=== PATIENT | female | born 1945 | race Caucasian/White ===

== ENCOUNTER 2017-04-11 11:27 | Emergency (ER) | payer MEDICARE, MEDICAID ==
--- NOTE | 2017-04-11 11:31 | ED Physician Chart ---
Chief Complaint/HPI - Patient Information Date Seen:: 04/11/17 Time Seen:: 11:31 Chief Complaint:: headache History of Present Illness:: 72-year-old female, otherwise healthy, complains of acute, worsening, constant, severe, nonradiating, generalized headache 3 days. Associated generalized body aches as well. Denies fevers, dysuria, abdominal pain, nausea, vomiting, numbness, tingling, injury, syncope, lightheadedness, dizziness. Historian:: Patient Review:: Nurse's Note Reviewed Review of Systems - Review of Systems Other: Complete system review otherwise unremarkable except as noted in history of present illness. Past Medical History - Past Medical History Past Medical History: No significant medical hx Family History: None Social History: Non Smoker, No Alcohol, No Drug Use, Other Surgical History: None Psychiatricy History: None Medication: None Family Medical History - Family Member Mother History Unknown: Yes Ethnicity: Living Status: Physical Exam - Physical Examination Other:: INITIAL VITAL SIGNS: Reviewed by me GENERAL: Alert and interactive. No acute distress HEAD: Head is normocephalic and atraumatic EYES: EOMI. PERRL. No scleral icterus. No conjunctival injection ENT: Moist mucous membranes. NECK: Supple. No masses. Full range of motion RESPIRATORY: No tachypnea. Clear breath sounds bilaterally. No wheezing, rales, or rhonchi CV: Regular rate and rhythm. No murmurs, rubs, or gallops ABDOMEN: Soft, non-distended, non-tender. No guarding. No rebound. No masses. EXTREMITIES: No deformity. No cyanosis. No edema. SKIN: Warm and dry. No obvious rashes. NEUROLOGIC: Alert and oriented. Face is symmetric. Speech is normal. Moves all extremities equally. Motor and sensory distally intact. Labs/Radiology/EKG Results - Lab Results Results: Lab Results 04/11/17 04/11/17 04/11/17 Range/Units 11:50 11:50 11:50 WBC 8.1 (4.8-10.8) Th/cmm RBC 4.52 (3.80-5.20) Mil/cmm Hgb 13.0 (11.7-16.1) gm/dL Hct 38.8 (35.0-45.0) % MCV 85.8 (81-100) fl MCH 28.8 (27.0-31.0) pg MCHC Differential 33.6 (28.0-36.0) pg RDW 13.1 (11.5-20.0) % Plt Count 164 (150-400) Th/cmm MPV 10.2 fl Neutrophils % 64.9 (40.0-80.0) % Lymphocytes % 22.9 (20.0-50.0) % Monocytes % 11.7 H (2.0-10.0) % Eosinophils % 0.2 (0.0-5.0) % Basophils % 0.3 (0.0-2.0) % PT 11.0 (9.5-11.5) SECONDS INR 1.06 (0.5-1.4) PTT (Actin FS) 31.4 (26.0-38.0) SECONDS Sodium 133 L (136-145) mEq/L Potassium 3.8 (3.5-5.1) mEq/L Chloride 107 (98-107) mEq/L Carbon Dioxide 20.8 L (21.0-31.0) mEq/L Anion Gap 9.0 (7.0-16.0) BUN 21 (7-25) mg/dL Creatinine 1.0 (0.6-1.2) mg/dL Est GFR ( Amer) TNP Est GFR (Non-Af Amer) TNP BUN/Creatinine Ratio 21.0 Glucose 109 H (70-105) mg/dL Whole Bld Lactic Acid (0.60-1.99) mmol/L Calcium 9.9 (8.6-10.3) mg/dL Total Bilirubin 0.6 (0.3-1.0) mg/dL AST 52 H (13-39) U/L ALT 67 H (7-52) U/L Alkaline Phosphatase 83 (34-104) U/L Total Protein 7.8 (6.0-8.3) gm/dL Albumin 3.9 (3.7-5.3) gm/dL Globulin 3.9 gm/dL Albumin/Globulin Ratio 1.0 (1.0-1.8) Urine Source Urine Color Urine Clarity (CLEAR) Urine pH Ur Specific [place] (1.005-1.030) Urine Protein (NEGATIVE) mg/dL Urine Glucose (UA) (NEGATIVE) mg/dL Urine Ketones (NEGATIVE) mg/dL Urine Blood (NEGATIVE) Urine Nitrate (NEGATIVE) Urine Bilirubin (NEGATIVE) Urine Urobilinogen (0.2 - 1.0) E.U./dL Ur Leukocyte Esterase (NEGATIVE) Urine RBC (0-5) /hpf Urine WBC (0-5) /hpf Ur Epithelial Cells (FEW) /lpf Urine Bacteria (NONE SEEN) /hpf 04/11/17 04/11/17 Range/Units 11:50 13:13 WBC (4.8-10.8) Th/cmm RBC (3.80-5.20) Mil/cmm Hgb (11.7-16.1) gm/dL Hct (35.0-45.0) % MCV (81-100) fl MCH (27.0-31.0) pg MCHC Differential (28.0-36.0) pg RDW (11.5-20.0) % Plt Count (150-400) Th/cmm MPV fl Neutrophils % (40.0-80.0) % Lymphocytes % (20.0-50.0) % Monocytes % (2.0-10.0) % Eosinophils % (0.0-5.0) % Basophils % (0.0-2.0) % PT (9.5-11.5) SECONDS INR (0.5-1.4) PTT (Actin FS) (26.0-38.0) SECONDS Sodium (136-145) mEq/L Potassium (3.5-5.1) mEq/L Chloride (98-107) mEq/L Carbon Dioxide (21.0-31.0) mEq/L Anion Gap (7.0-16.0) BUN (7-25) mg/dL Creatinine (0.6-1.2) mg/dL Est GFR ( Amer) Est GFR (Non-Af Amer) BUN/Creatinine Ratio Glucose (70-105) mg/dL Whole Bld Lactic Acid 0.91 (0.60-1.99) mmol/L Calcium (8.6-10.3) mg/dL Total Bilirubin (0.3-1.0) mg/dL AST (13-39) U/L ALT (7-52) U/L Alkaline Phosphatase (34-104) U/L Total Protein (6.0-8.3) gm/dL Albumin (3.7-5.3) gm/dL Globulin gm/dL Albumin/Globulin Ratio (1.0-1.8) Urine Source CLEAN C Urine Color YELLOW Urine Clarity SL. CLOUDY (CLEAR) Urine pH 6.0 Ur Specific [place] 1.025 (1.005-1.030) Urine Protein 30 H (NEGATIVE) mg/dL Urine Glucose (UA) NEGATIVE (NEGATIVE) mg/dL Urine Ketones NEGATIVE (NEGATIVE) mg/dL Urine Blood MODERATE H (NEGATIVE) Urine Nitrate POSITIVE H (NEGATIVE) Urine Bilirubin NEGATIVE (NEGATIVE) Urine Urobilinogen 0.2 (0.2 - 1.0) E.U./dL Ur Leukocyte Esterase SMALL H (NEGATIVE) Urine RBC 5-7 (0-5) /hpf Urine WBC 10-25 H (0-5) /hpf Ur Epithelial Cells FEW (FEW) /lpf Urine Bacteria MANY (NONE SEEN) /hpf - EKG Interpretations Comments:: 12-lead EKG Interpretation by Manuel Flaherty MD: Normal Sinus Rhythm with ventricular rate of 95 beats per minute Normal axis Normal intervals No acute ST or T wave changes. No obvious STEMI ED Septic Shock - . Is Septic Shock (SBP<90, OR Lactate>4 mmol\L) present?: No Reassessment (Disposition) - Reassessment Reassessment:: Patient presents with headache and body aches. Has UTI. Gave IV normal saline , IV analgesics, IV antibiotics. Symptoms improved. Will give prescription for oral antibiotics. Recommend follow-up with primary care in 1-2 days. Return to ER precautions given. Patient says she understands and agrees with the plan. Blood pressure was noted to be elevated over 120/80. There were no signs of hypertension. Discussed the findings with the patient and recommended that the patient follow up with the primary care physician regarding the elevated blood pressure. - Diagnosis Diagnosis:: Acute Cephalalgia Acute urinary tract infection, sight unspecified, with hematuria Elevated blood pressure without the diagnosis of hypertension - Aftercare/Follow up Instructions Aftercare/Follow-Up Instructions:: Counseled pt regarding lab results/diagnosis & need follow up, Refer to Discharge Instructions Medication Prescribed:: Cephalexin - Patient Disposition Discharge/Transfer:: Home Time:: 14:04 Condition at Disposition:: Improved ED Discharge Plan - Patient Disposition Instructions: Urinary Tract Infection
[2017-04-11] MEDS ORDERED: Dexamethasone Sodium Phos 4 mg/mL Vial IVP STA (11:35)
[2017-04-11] MEDS ORDERED: Sodium Chloride 0.9% 1,000 ML IV ONE (11:35)
[2017-04-11] MEDS ORDERED: Prochlorperazine 5 mg/mL 2mL Vial IVP STA (11:44)
[2017-04-11] MEDS ORDERED: Dexamethasone Sodium Phos 10 mg/mL PF Vial ONE (11:51)
[2017-04-11] MEDS ORDERED: Prochlorperazine 5 mg/mL 2mL Vial ONE (11:54)
[2017-04-11 11:57] LABS: % BASOPHILS 0.3 % (0.0-2.0); % EOSINOPHILS 0.2 % (0.0-5.0); % LYMPHOCYTES 22.9 % (20.0-50.0); % MONOCYTES 11.7 % (2.0-10.0); % NEUTROPHILS 64.9 % (40.0-80.0); HEMATOCRIT 38.8 % (35.0-45.0); MEAN CELL VOLUME 85.8 fl (81-100); MEAN CORPUSCULAR HEMOGLOBIN 28.8 pg (27.0-31.0); MEAN CORPUSCULAR HGB CONC 33.6 pg (28.0-36.0); MEAN PLATELET VOLUME 10.2 fl; NEUTROPHILE ABSOLUTE 5.3 Th/cmm (1.8-8.0); PLATELET COUNT 164 Th/cmm (150-400); RED BLOOD COUNT 4.52 Mil/cmm (3.80-5.20); RED CELL DISTRIBUTION WIDTH 13.1 % (11.5-20.0); WHITE BLOOD COUNT 8.1 Th/cmm (4.8-10.8)
[2017-04-11 12:16] LABS: INR 1.06 (0.5-1.4)
[2017-04-11 12:24] LABS: ALKALINE PHOSPHATASE 83 U/L (34-104); BILIRUBIN,TOTAL 0.6 mg/dL (0.3-1.0); BUN - UREA NITROGEN 21 mg/dL (7-25); CALCIUM SERUM 9.9 mg/dL (8.6-10.3); CARBON DIOXIDE 20.8 mEq/L (21.0-31.0); CHLORIDE 107 mEq/L (98-107); GLUCOSE 109 mg/dL (70-105); POTASSIUM SERUM 3.8 mEq/L (3.5-5.1); SGOT 52 U/L (13-39); SGPT/ALT 67 U/L (7-52); SODIUM SERUM 133 mEq/L (136-145)
[2017-04-11 13:35] LABS: URINE BACTERIA MANY /hpf (NONE SEEN); URINE BILIRUBIN NEGATIVE (NEGATIVE); URINE BLOOD MODERATE (NEGATIVE); URINE COLOR YELLOW; URINE EPITHELIAL CELLS FEW /lpf (FEW); URINE GLUCOSE (UA) NEGATIVE (NEGATIVE); URINE KETONE NEGATIVE (NEGATIVE); URINE PROTEIN 30 mg/dL (NEGATIVE); URINE UROBILINOGEN 0.2 E.U./dL (0.2 - 1.0)
[2017-04-11] MEDS ORDERED: cefTRIAXone 1 GM in Sodium Chloride 0.9% 50 ML IV ONE (13:51)
== END 2017-04-11 14:00 | disposition home or self-care (01) ==
LOC: ER 11:27
DX: R51 Headache (principal); N39.0 Urinary tract infection, site not specified; R03.0 Elevated blood-pressure reading, without diagnosis of hypertension; R31.9 Hematuria, unspecified; Z91.041 Radiographic dye allergy status; Z88.0 Allergy status to penicillin
CPT/HCPCS: 99285; 96365; 96375; 93005; 36415; 83605; 85025; 85610; 85730; 87086; 81001; 80053; 87040 ×2; J1885; J0696; J0780; J1200; J7030

== ENCOUNTER 2018-11-18 15:35 | Emergency (ER) | payer MEDICARE, MEDICAID ==
[2018-11-18] MEDS ORDERED: Lactated Ringer 1,000 ML IV ONE (16:07)
[2018-11-18] MEDS ORDERED: Morphine Sulfate 2 mg/mL 1mL Syr ONE ×2 (17:47→22:59)
--- NOTE | 2018-11-18 18:47 | ED Physician Chart ---
ED Chief Complaint/HPI - Patient Information Date Seen:: 11/18/18 Time Seen:: 16:27 Chief Complaint:: R hip pain s/p fall History of Present Illness:: R hip pain s/p fall Allergies:: Allergies Allergy/AdvReac Type Severity Reaction Status Date / Time iodine Allergy Verified 04/11/17 11:41 Penicillins [PCN] Allergy Verified 04/11/17 11:41 Vitals:: Vital Signs - 8 hr 11/18/18 11/18/18 16:27 18:22 Temp 98.0 F 98.5 F HR 75 95 RR 19 18 BP 163/73 180/88 O2 Sat % 95 95 Historian:: Patient, Family Member Review:: Nurse's Note Reviewed ED Review of Systems - Review of Systems General/Constitutional: No fever, No chills, No weight loss, No weakness, No diaphoresis, No edema, No loss of appetite Skin: No skin lesions, No rash, No bruising Head: No headache, No light-headedness Eyes: No loss of vision, No pain, No diplopia ENT: No earache, No nasal drainage, No sore throat, No tinnitus Neck: No neck pain, No swelling, No thyromegaly, No stiffness, No mass noted Cardio Vascular: No chest pain, No palpitations, No PND, No orthopnea, No edema Pulmonary: No SOB, No cough, No sputum, No wheezing GI: No nausea, No vomiting, No diarrhea, No pain, No melena, No hematochezia, No constipation, No hematemesis G/U: No dysuria, No frequency, No hematuria Musculoskeletal: Bone or joint pain Endocrine: No polyuria, No polydipsia Psychiatric: No prior psych history, No depression, No anxiety, No suicidal ideation Hematopoietic: No bruising, No lymphadenopathy Allergic/Immuno: No urticaria, No angioedema Neurological: No syncope, No focal symptoms, No weakness, No paresthesia, No headache, No seizure, No dizziness, No confusion, No vertigo ED Past Medical History - Past Medical History Obtainable: Yes Past Medical History: No significant medical hx Family Medical History - Family Member Mother History Unknown: Yes Ethnicity: Living Status: ED Physical Exam - Physical Examination Other Gen/Cons comments:: in pain. Received Morphine 12 mg IV en route. Head: Atraumatic Eyes: Lids, conjuctiva normal, PERRL, EOMI Skin: Nl inspection, No rash, No skin lesions, No ecchymosis, Well hydrated, No lymphadenopathy ENMT: External ears, nose nl Neck: Nontender, No nuchal rigidity, No stridor Respiratory: Nl effort/Exclusion, Clear to Auscultation, No Wheeze/Rhonchi/Rales Cardio Vascular: RRR, No murmur, gallop, rubs, NL S1 S2 GI: No tenderness/rebounding/guarding, No organomegaly, No hernia, Normal BS's, Nondistended, No mass/bruits, No McBurney tenderness Other Extremities comments:: Right hip pain. NV intact. Neuro/Psych: Alert/oriented Other Neuro/Psych comments:: in pain. ED Assessment - Assessment General Assessment: case hardener called from [facility]. We need a higher level of care for transfer to an orthopedist. called and let the phone ring for [address] Hai Alfonso, orthopedist. No answer. sign out given to Dr. Georges that [facility] is looking for a place to send this patient ED Septic Shock - . Is Septic Shock (SBP<90, OR Lactate>4 mmol\L) present?: No - <6hrs of presentation: Vital Signs: Vital Signs - 8 hr 11/18/18 11/18/18 16:27 18:22 Temp 98.0 F 98.5 F HR 75 95 RR 19 18 BP 163/73 180/88 O2 Sat % 95 95 ED Reassessment (Disposition) - Reassessment Reassessment Condition:: Improved - Diagnosis Diagnosis:: Closed, right intertrochanteric fracture. RUE abrasions H/o prior plated R ulnar fracture. - Patient Disposition Discharge/Transfer:: Acute Care (other hosp) Condition at Disposition:: Stable, Improved
[2018-11-18] MEDS ORDERED: Triple Antibiotic 0.94 gm Pkt TP SCH (19:15)
[2018-11-18 19:17] LABS: EOSINOPHILE ABSOLUTE 0.1 Th/cmm (0.1-0.4); HEMATOCRIT 37.9 % (41.0-60); HEMOGLOBIN 12.6 gm/dL (12-16); LYMPHOCYTE ABSOLUTE 0.8 Th/cmm (1.5-3.0); MEAN CELL VOLUME 88.7 fl (81-100); MEAN CORPUSCULAR HEMOGLOBIN 29.5 pg (27.0-31.0); MEAN CORPUSCULAR HGB CONC 33.3 pg (28.0-36.0); MEAN PLATELET VOLUME 10.4 fl; MONOCYTE ABSOLUTE 0.5 Th/cmm (0.3-1.0); PLATELET COUNT 200 Th/cmm (150-400); RED BLOOD COUNT 4.27 Mil/cmm (3.80-5.20); RED CELL DISTRIBUTION WIDTH 12.8 % (11.5-20.0)
[2018-11-18 19:22] LABS: WHITE BLOOD COUNT 16.4 Th/cmm (4.8-10.8)
[2018-11-18 19:25] LABS: ALB/GLOB RATIO 1.5 (1.0-1.8); ALBUMIN 4.1 gm/dL (3.7-5.3); ALKALINE PHOSPHATASE 65 U/L (34-104); ANION GAP 12.8 (7.0-16.0); BILIRUBIN,TOTAL 0.4 mg/dL (0.3-1.0); BUN - UREA NITROGEN 20 mg/dL (7-25); CALCIUM SERUM 9.9 mg/dL (8.6-10.3); CHLORIDE 107 mEq/L (98-107); CREATININE - SERUM 0.8 mg/dL (0.6-1.2); GLUCOSE 126 mg/dL (70-105); MAGNESIUM 1.9 mg/dL (1.9-2.7); PHOSPHOROUS 3.8 mg/dL (2.5-5.0); POTASSIUM SERUM 3.8 mEq/L (3.5-5.1); SGOT 20 U/L (13-39); SGPT/ALT 13 U/L (7-52); SODIUM SERUM 140 mEq/L (136-145); TOTAL PROTEIN,SERUM 6.9 gm/dL (6.0-8.3)
[2018-11-18] MEDS ORDERED: Triple Antibiotic 0.94 gm Pkt TP ONE (19:41)
[2018-11-18 20:01] LABS: BAND NEUTROPHILE 0 % (0-10); BASOPHIL 0 % (0-3); EOSINOPHIL 0 % (0-5); LYMPHOCYTE 4 % (20-50); MONOCYTE 4 % (2-10); NEUTROPHILS 91 % (40-80)
[2018-11-18 21:10] LABS: INR 0.98 (0.5-1.4); PROTHROMBIN TIME (TEST) 10.2 SECONDS (9.5-11.5)
[2018-11-18] MEDS ORDERED: Morphine Sulfate 2 mg/mL 1mL Syr IVP STA ×2 (22:46)
[2018-11-19] MEDS ORDERED: Morphine Sulfate 4 mg/mL 1mL Syr ONE ×2 (00:19→03:25)
[2018-11-19] MEDS ORDERED: Morphine Sulfate 4 mg/mL 1mL Syr IVP STA (00:37)
[2018-11-19] MEDS ORDERED: Morphine Sulfate 4 mg/mL 1mL Syr IV STA (03:21)
--- NOTE | 2018-11-19 07:51 | Diagnostic Imaging Report ---
Exam: Right forearm HISTORY: Trauma Prior exams: None Findings: Portable summation of right forearm at 1659 reviewed. The study demonstrates extensive fusion of the proximal right ulna metallic plate and screws in satisfactory position and orientation. There is no evidence of fracture dislocation. No soft tissue swelling is noted. Impression: status post fusion of proximal right ulna in satisfactory position.
--- NOTE | 2018-11-19 07:52 | Diagnostic Imaging Report ---
Exam: Right hip joint. HISTORY: Status post fall. Findings: Portable examination of the right hip joint at 1701 reviewed. The study demonstrates comminuted displaced into trochanteric fracture of the right femur. Avulsion of lesser trochanter is noted. The head of right femur is well within the acetabular fossa. The visualized hemipelvis is intact. IMPRESSION: comminuted, displaced intratrochanteric fracture right femur.
--- NOTE | 2018-11-19 07:53 | Diagnostic Imaging Report ---
Exam: Pelvis. HISTORY: Trauma. Findings: Portable summation of pelvis at 1649 reviewed. The study demonstrates minimally displaced intratrochanteric fracture of the right femur. The sacroiliac joints and pubic symphysis is intact. The left hip joint is intact. IMPRESSION: Displaced, comminuted intratrochanteric fracture right femur with avulsion of lesser trochanter.
--- NOTE | 2018-11-19 09:37 | Diagnostic Imaging Report ---
CT right lower extremity without IV contrast History: Right hip pain, fracture Comparison: Right hip x-rays performed the same day Technique: Axial images of the pelvis and right hip were obtained without IV contrast. Multiplanar reconstructions were made. Total DLP 262, CTD I 12.0 Findings: There is a comminuted mildly displaced angulated fracture of the right intertrochanteric region. The fracture line extends to the proximal right femoral shaft. No evidence of dislocation. Surrounding mild soft tissue inflammatory changes are noted. Moderate right hip joint degenerative changes are noted. Enthesophyte formation seen throughout the pelvis. IMPRESSION: Comminuted mildly displaced and angulated right femoral intertrochanteric fracture which extends to the proximal aspect of the right femoral shaft.
== END 2018-11-19 04:08 | disposition short-term general hospital (02) ==
LOC: ER 15:35
DX: S72.141A Displaced intertrochanteric fracture of right femur, initial encounter for closed fracture (principal); S40.811A Abrasion of right upper arm, initial encounter; Z88.0 Allergy status to penicillin; Z91.041 Radiographic dye allergy status; W18.39XA Other fall on same level, initial encounter; Y93.89 Activity, other specified; Y92.89 Other specified places as the place of occurrence of the external cause; Y99.8 Other external cause status
CPT/HCPCS: 99285; 96374; 96375; 96376; 93005; 72170; 73502; 73090; 73700; 36415; 83605; 85007; 85025; 85610; 83735; 84100; 80053; 87040; J2270 ×2; J1885; J2405 ×2; 73501; Z7610